=== PATIENT | male | born 1935 | race Caucasian/White ===

== ENCOUNTER → 2017-08-10 | Outpatient (CLI) | payer OTHER | LOC: FIMAGING 07:54 | PROVIDERS: ATTEND Internal Medicine | DX: J84.9 Interstitial pulmonary disease, unspecified (principal); E03.9 Hypothyroidism, unspecified; E66.3 Overweight; E78.00 Pure hypercholesterolemia, unspecified; G60.9 Hereditary and idiopathic neuropathy, unspecified; I10 Essential (primary) hypertension; K21.9 Gastro-esophageal reflux disease without esophagitis; N40.1 Benign prostatic hyperplasia with lower urinary tract symptoms; N40.2 Nodular prostate without lower urinary tract symptoms ==

== ENCOUNTER → 2017-08-19 | Outpatient (CLI) | payer OTHER | LOC: FIMAGING 09:02 | PROVIDERS: ATTEND Internal Medicine | DX: J84.9 Interstitial pulmonary disease, unspecified (principal); K44.9 Diaphragmatic hernia without obstruction or gangrene ==

== ENCOUNTER 2017-11-09 12:31 | Day surgery (SDC) | payer OTHER ==
[2017-11-09] MEDS ORDERED: LR 1,000 ML IV ONE (12:45)
[2017-11-09] MEDS ORDERED: ALBUTEROL 3 ML DEYVIAL IH PRN ×2 (13:06→13:41)
[2017-11-09] MEDS ORDERED: DEXAMETHASONE 4 MG/ML VIAL IVP PRN ×2 (13:06→13:41)
[2017-11-09] MEDS ORDERED: fentaNYL 100 MCG/2 ML INJ IVP PRN ×2 (13:06→13:41)
[2017-11-09] MEDS ORDERED: NALOXONE HCL 0.4 MG/ML INJ IVP PRN ×2 (13:06→13:41)
[2017-11-09] MEDS ORDERED: ONDANSETRON 4 MG/2 ML VIAL IVP PRN ×2 (13:06→13:41)
[2017-11-09] MEDS ORDERED: LR 500 ML IV PRN ×2 (13:06→13:41)
--- NOTE | 2017-11-09 13:06 | PDANEPAE ---
ANE History of Present Illness here for EGD/EUS ANE Past Medical History - Cardiovascular History Hx Hypertension: Yes Hx Arrhythmias: No Hx Chest Pain: No Hx Coronary Artery / Peripheral Vascular Disease: No Hx CHF / Valvular Disease: No Hx Palpitations: No Cardiovascular History Comment: high cholesterol - Pulmonary History Hx COPD: No Hx Asthma/Reactive Airway Disease: No Hx Recent Upper Respiratory Infection: No Hx Oxygen in Use at Home: No Hx Sleep Apnea: No Sleep Apnea Screening Result - Last Documented: Positive Pulmonary History Comment: interstial lung disease - Neurologic History Hx Cerebrovascular Accident: No Hx Seizures: No Hx Dementia: No Neurologic History Comment: Neuropathy both feet. Cervical vertigo- causes pt to get dizzy. - Endocrine History Hx Diabetes: No Endocrine History Comment: Hypothyroid-med. - Renal History Hx Renal Disorders: No Renal History Comment: mild BPH. - Liver History Hx Hepatic Disorders: No - Neurological & Psychiatric Hx Hx Neurological and Psychiatric Disorders: Yes Neurological / Psychiatric History Comment: Mild anxiety-med - Cancer History Hx Cancer: No - Congenital Disorder History Hx Congenital Disorders: No - GI History Hx Gastrointestinal Disorders: Yes Gastrointestinal History Comment: gerd,heart burn - Other Health History Other Health History: Mild hearing loss. Chronic sinus drainage. Diffuse joint arthritis. Bruise easily. Brace R knee. decreased ROM in neck - Chronic Pain History Chronic Pain: No - Surgical History Prior Surgeries: 1996-R knee surg. R ing hernia repair. right knee replaced ANE Review of Systems Review of systems is: negative Review of Systems: - Exercise capacity METS (RN): 4 METS ANE Patient History - Allergies Allergies/Adverse Reactions: No Known Allergies Allergy (Verified 02/07/15 09:33) - Home Medications Home medications: home medication list seen and reviewed Home Medications: Aspirin [Aspirin 81mg (*)] 81 mg PO DAILY 01/31/15 [Last Taken 11/05/17] Glucosam/Chondr/Collagn/Hyalur [Glucosamine & Chondroitin Cap] 2 each PO DAILY 01/31/15 [Last Taken 11/08/17] Herbals/Supplements -Info Only 1 ea PO DAILY 01/31/15 [Last Taken 11/08/17] LORazepam [Ativan] 0.5 mg PO DAILY PRN 01/31/15 [Last Taken 11/08/17] Levothyroxine [Synthroid 50 mcg (*)] 50 mcg PO DAILY06 01/31/15 [Last Taken ] Lisinopril [Zestril 20 mg (*)] 20 mg PO BID 01/31/15 [Last Taken 11/08/17] Omeprazole [Prilosec 20 mg] 20 mg PO DAILY 01/31/15 [Last Taken 11/08/17] Simvastatin [Zocor] 80 mg PO DAILY18 01/31/15 [Last Taken 11/08/17] Ibuprofen [Advil] 200 mg PO Q6 PRN 02/26/15 [Last Taken 11/05/17] Sildenafil Citrate [Viagra 25 MG (*)] 25 mg PO DAILY PRN 02/26/15 [Last Taken ] - NPO status NPO Status: no food or drink >8 hours - Smoking Hx Smoking Status: Former smoker - Family Anes Hx Family Hx Anesthesia Complications: none ANE Labs/Vital Signs - Vital Signs Vital Signs: reviewed preoperatively; see RN documention for details Height: 173.99 cm Weight: 83.007 kg ANE Physical Exam - Airway Neck exam: FROM Mallampati Score: Class 1 - Pulmonary Pulmonary: no respiratory distress - Cardiovascular Cardiovascular: regular rate and rhythym - ASA Status ASA Status: II ANE Anesthesia Plan Anesthesia Plan: GA with mask
--- NOTE | 2017-11-09 13:34 | PDGENHP ---
History & Physical Chief Complaint: duodenal lesion History of Present Illness: 82 year old male presents for evaluation of subepithelial lesion. Pertinent Past, Social, Family History: PSugHx: L knee, hernia. SoHx: Former smoker Relevant Physical Exam: HEENT: anicteric. CV: RRR +s1s2. lungs: CTAB. Abd: soft, nt, + BS Cardiorespiratory Assessment: ASA 2
[2017-11-09] MEDS ORDERED: INDOMETHACIN 50 MG SUPP PR PRN (13:35)
[2017-11-09] MEDS ORDERED: PROPOFOL/EMULSION 500 MG/50 ML BOTTLE IV ONE (13:36)
[2017-11-09] MEDS ORDERED: NS 500 ML IV PRN (13:41)
[2017-11-09] MEDS ORDERED: NS 500 ML IV SCH (13:45)
[2017-11-09] MEDS ORDERED: PHENYLEPHRINE HCL 100 MCG/ML SYR ONE (13:58)
[2017-11-09] MEDS ORDERED: PROPOFOL 200 MG/20 ML VIAL ONE ×2 (14:07→14:21)
--- NOTE | 2017-11-09 14:50 | GIREPORT ---
[facility] - Endoscopy Department Patient Name: Jovan Lopez Procedure Date: 11/09/2017 9:16 AM Patient Type: Outpatient Attending MD/ ER Physician: Reece Martino MD Procedure: Upper EUS Indications: Duodenal deformity on endoscopy/Subepithelial tumor vs. extrinsic compr ession Patient Profile: 82 year old male presents for evaluation of a subepithelial lesion in t he 2nd portion of the duodenum. Providers: Reece Martino MD Medicines: Monitored Anesthesia Care Complications: No immediate complications. Estimated blood loss: Minimal. Description of Procedure: After obtaining informed consent, the endoscope was passed under direct vision. Throughout the procedure, the patient's blood pressure, pulse, and oxygen saturations were monitored continuously. The Endosonoscope was introduced through the mouth, and advanced to the second part of duoden um. The Endoscope was introduced through the mouth, and advanced to the sec ond part of duodenum. The upper EUS was accomplished without difficulty. Th e esophagus, stomach, and duodenum were visualized endosonographically. T he patient tolerated the procedure well. Findings: Endoscopic Finding : There were esophageal mucosal changes consistent with long-segment Romero ett's esophagus present in the lower third of the esophagus. The maximum longitudinal extent of these mucosal changes was 4 cm in length. Biopsi es were taken with a cold forceps for histology. A medium-sized hiatal hernia was present. A single large submucosal nodule was found in the second portion of the duodenum. It appeared pedunculated and could be grasped with forceps. Biopsies were taken with a cold forceps for histology. Endosonographic Finding : A round intramural (subepithelial) lesion was found in the second porti on of the duodenum. The lesion was hyperechoic and homogenous. The outer kim ins were well defined. Appearance consistent with a lipoma. Pancreatic parenchymal abnormalities were noted in the entire pancreas. These consisted of hyperechoic foci. There was no sign of significant endosonographic abnormality in the visualized portion of the liver. No lymphadenopathy seen. Estimated Blood Loss: Estimated blood loss was minimal. 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 Biopsied. - Medium-sized hiatal hernia. - Submucosal nodule found in the duodenum. Biopsied. - On EUS, the submucosal nodule had an appearance consistent with a lip jennifer. - Pancreatic parenchymal abnormalities consisting of hyperechoic foci w ere noted in the entire pancreas. - There was no evidence of significant pathology in the visualized port ion of the liver. Recommendation: - Discharge patient to home (with escort). - Await path results. - Thank you for allowing me to participate in the care of your patient. Attending Participation: I personally performed the entire procedure. Reece Martino MD Reece Martino MD 11/09/2017 2:49:39 PM This report has been signed electronicallyReece Martino MD Number of Addenda: 0 Note Initiated On: 11/09/2017 9:16 AM [email or web address]
--- NOTE | 2017-11-09 15:43 | POSTANESTH ---
Post Anesthetic Evaluation Cardiovascular Status: Normal, Stable Respiratory Status: Normal, Stable Level of Consciousness/Mental Status: Can Participate in Eval Pain Control: Adequate, Prn Tx Ordered Nausea/Vomiting Control: Adequate, Prn Tx Ordered Complications Possibly Related to Anesthesia: None Noted
[2017-11-09 16:04] VITALS: BP 105/68
== END 2017-11-09 16:01 | disposition home or self-care (01) ==
LOC: FSGY 12:31
PROVIDERS: ATTEND Internal Medicine Gastroenterology
PROC: 0DB98ZX Excision of Duodenum, Via Natural or Artificial Opening Endoscopic, Diagnostic (ICD-10-PCS; principal; 2017-11-09 14:15)
PROC: 0DB38ZX Excision of Lower Esophagus, Via Natural or Artificial Opening Endoscopic, Diagnostic (ICD-10-PCS; principal; 2017-11-09 14:15)
DX: K31.89 Other diseases of stomach and duodenum (principal); R93.3 Abnormal findings on diagnostic imaging of other parts of digestive tract
CPT/HCPCS: J2370; J2704

== ENCOUNTER 2018-08-26 21:19 | Emergency (ER) | payer OTHER ==
--- NOTE | 2018-08-26 21:37 | EDPHY ---
H & P Stated Complaint: heart doesn't feel right Time Seen by Provider: 08/26/18 21:33 - Personal History Current Tetanus Diphtheria and Acellular Pertussis (TDAP): Yes - Medical/Surgical History Hx Asthma: No Hx Chronic Respiratory Disease: No Hx Diabetes: No Hx Cardiac Disease: No Hx Renal Disease: No Hx Cirrhosis: No Hx Alcoholism: No Hx HIV/AIDS: No Hx Splenectomy or Spleen Trauma: No Other PMH: hypertension, pulmonary fibrosis, peripheral neuropathy - Social History Smoking Status: Former smoker Constitutional: Initial Vital Signs Temperature (C) 36.6 C 08/26/18 21:22 Heart Rate 60 08/26/18 21:22 Respiratory Rate 18 08/26/18 21:22 Blood Pressure 124/73 H 08/26/18 21:22 O2 Sat (%) 94 08/26/18 21:22 Allergies/Adverse Reactions: No Known Allergies Allergy (Verified 08/26/18 21:21) Home Medications: Medication Instructions Recorded Aspirin [Aspirin 81mg (*)] 81 mg PO DAILY 01/31/15 Glucosam/Chondr/Collagn/Hyalur 2 each PO DAILY 01/31/15 [Glucosamine & Chondroitin Cap] Herbals/Supplements -Info Only 1 ea PO DAILY 01/31/15 LORazepam [Ativan] 0.5 mg PO DAILY PRN 01/31/15 Levothyroxine [Synthroid 50 mcg 50 mcg PO DAILY06 01/31/15 (*)] Lisinopril [Zestril 20 mg (*)] 20 mg PO BID 01/31/15 Omeprazole [Prilosec 20 mg] 20 mg PO DAILY 01/31/15 Simvastatin [Zocor] 80 mg PO DAILY18 01/31/15 Ibuprofen [Advil] 200 mg PO Q6 PRN 02/26/15 Sildenafil Citrate [Viagra 25 MG] 25 mg PO DAILY PRN 02/26/15 Medical Decision Making ED Course/Re-evaluation: CHIEF COMPLAINT: Heart doesn't feel right HISTORY OF PRESENT ILLNESS: The patient is an 83 y/o male with a history of pulmonary fibrosis and hypertension complaining of his "heart not feeling right" for the last week. He took his home O2Sats and noted that it was 94% but his heart rate kept jumping from 40bpm to 80bpm. His heart beat feels irregular and weak. These symptoms are different than his normal pulmonary fibrosis symptoms. He denies seeing a cellular equipment installer or having any heart imaging performed. No fever, headache, body aches, lightheadedness, shortness of breath, cough, abdominal pain, urinary or bowel complaints, numbness, paresthesias. REVIEW OF SYSTEMS: A 10 point review of systems was performed and is negative with the exception of the elements mentioned in the history of present illness. PHYSICAL EXAM: HR, BP, O2 Sat, RR. Temp noted General Appearance: Alert, well hydrated, appropriate, and non-toxic appearing. Head: Atraumatic without scalp tenderness or obvious injury Eyes: Pupils equal, round, reactive to light and accommodation, EOMI, no trauma , no injection. Ears: Clear bilaterally, no perforation, normal landmarks Nose: Atraumatic, no rhinorrhea, clear. Throat: There is no erythema or exudates, no lesions, normal tonsils, mucus membranes moist. Neck: Supple, 2+ carotid upstroke, nontender, no lymphadenopathy. Respiratory: No retractions, no distress, no wheezes, and no accessory muscle use. Lungs are clear to auscultation bilaterally. Cardiovascular: Irregular rhythm, 1/6 systolic ejection murmur, rubs, or gallops. Bilateral carotid, radial, dorsalis pedis, and posterior tibial pulses intact. Good capillary refill all extremities. Gastrointestinal: Abdomen is soft, nontender, non-distended, no masses, no rebound, no guarding, no peritoneal signs. Musculoskeletal: Normal active ROM of all extremities, atraumatic. Neurological: Alert, appropriate, and interactive. The patient has normal DTRs and non-focal cranial nerves, motor, sensory, and cerebellar exam. Skin: No rashes, good turgor, no nodules on palpation. Past medical history: Peripheral neuropathy, pulmonary fibrosis, hypertension Past surgical history: Denies Family history: Denies Social history: at bedside, lives in [place], retired DIAGNOSTICS/PROCEDURES/CRITICAL CARE TIME: EKG: The 12 lead EKG was interpreted by myself as sinus rhythm with a rate of atrial premature complexes. See hard copy and/or "tracemaster" electronic copy for interpretation. DIFFERENTIAL DIAGNOSIS: The differential diagnosis for the patient's chest pain included but was not limited to dysrhythmia, myocardial ischemia, pulmonary embolus, chest wall pain , pleural inflammation, and pulmonary infectious causes. MEDICAL DECISION MAKING: The patient is an 83 y/o male with a history of pulmonary fibrosis and hypertension complaining of his "heart not feeling right" as it is weak and irregular for the last week. He took his home O2Sats and noted that it was 94% but his heart rate kept jumping from 40bpm to 80bpm. His heart beat feels irregular and weak. On exam he has an irregular heart rate as well as a 1/6 systolic ejection murmur. Labs and EKG ordered. 2130: I reviewed patient's EKG as sinus rhythm with a rate of atrial premature complexes. Labs still pending. 2144: Patient's troponin is negative. 2145: Reassessed patient and discussed EKG and laboratory studies. I have advised him to follow up with a cellular equipment installer. Return precautions provided; patient is comfortable with this plan. Departure - Departure Clinical Impression: Premature atrial complexes Instructions: Premature Atrial Contractions (ED) Additional Instructions: 1. Follow-up with your primary doctor within 72 hours. 2. Return to the Emergency Department for fever, chest pain, shortness of breath , increasing pain or other worsening of condition. 3. Follow up with a cellular equipment installer for further testing, as soon as possible, within one week. 4. As we discussed, it is impossible to fully rule out heart disease as the cause of your chest pain in the emergency department. We would be happy to reevaluate you and observe you in the hospital at any time. Referrals: Portillo Bland MD [Primary Care Provider] - As per Instructions Arslan Loomis MD [Medical Doctor] - As per Instructions Report Scribed for: Nehemias Fung Report Scribed by: Doris Voss Date of Report: 08/26/18 Time of Report: 21:41
[2018-08-26 21:59] VITALS: BP 126/71
--- NOTE | 2018-08-27 19:30 | CPEKG ---
Test Reason : OPEN Blood Pressure : / mmHG Vent. Rate : 064 BPM Atrial Rate : 129 BPM P-R Int : 192 ms QRS Dur : 083 ms QT Int : 418 ms P-R-T Axes : 018 -03 049 degrees QTc Int : 432 ms Sinus rhythm Atrial premature complexes Confirmed by Nehemias Fung ([id number]) on 08/27/2018 7:30:17 PM Referred By: PHYSICIAN ED Confirmed By:Nehemias Fung
== END 2018-08-26 21:58 | disposition home or self-care (01) ==
DX: I49.1 Atrial premature depolarization (principal); I10 Essential (primary) hypertension; Z87.891 Personal history of nicotine dependence
CPT/HCPCS: 84484-ER